=== PATIENT | female | born 1985 | race Caucasian/White ===

== ENCOUNTER 2018-10-24 23:10 | Emergency (ER) | payer MEDICAID ==
[2018-10-24 23:14] VITALS: BMI 28.9
[2018-10-24 23:39] VITALS: BP 106/65; PULSE 90; RESP 18; TEMP 98.2; O2SAT 100
--- NOTE | 2018-10-24 23:53 | ED PDOC ---
Arrival/HPI - General Chief Complaint: Flu-like Symptoms Time Seen by Provider: 10/24/18 23:13 Historian: Patient - History of Present Illness Narrative History of Present Illness (Text): 10/24/18 23:40 33 year old female, with no significant past medical history, presents to the emergency department with flu-like symptoms for 1 day. Patient states she is having congestion, body aches, and a fever. Patient informs she has had sick contact contact at home, as both her children are flu positive. Patient denies any Patient denies any headache, dizziness, chest pain, shortness of breath, abdominal pain, back pain, neck pain, or any other complaint. Time/Duration: 24 hours Symptom Onset: Gradual Symptom Course: Unchanged Activities at Onset: Light Context: Work Past Medical History - Provider Review Nursing Documentation Reviewed: Yes - Tetanus Immunization Tetanus Immunization: Unknown - Pulmonary Hx Respiratory Disorders: Yes Hx Asthma: Yes - Psychiatric Hx Substance Use: No - Surgical History Hx Section: Yes Family/Social History - Physician Review Nursing Documentation Reviewed: Yes Family/Social History: No Known Family HX Smoking Status: Never Smoked Hx Alcohol Use: No Hx Substance Use: No Hx Substance Use Treatment: No Allergies/Home Meds Allergies/Adverse Reactions: Allergies lactase [From [employer]] Allergy (Verified 10/24/18 23:14) RASH shrimp Allergy (Verified 10/24/18 23:14) ITCHING strawberry Allergy (Verified 10/24/18 23:14) RASH Review of Systems - Physician Review All systems were reviewed & negative as marked: Yes - Review of Systems Cardiovascular: absent: Chest Pain Neurological: absent: Headache Physical Exam - Physical Exam Narrative Physical Exam (Text): 10/24/18 23:54 Constitutional: No acute distress. Head: Normocephalic. Atraumatic. Eyes: PERRL. ENT: Moist mucous membranes; congested. Neck: Supple. Cardiovascular: Regular rate. Chest: No tenderness. Respiratory: Clear to auscultation bilaterally. GI: Soft. Nontender. Nondistended. Back: No CVA tenderness. Musculoskeletal: No tenderness or swelling of extremities. Skin: No rash. Neurologic: Alert, no focal deficit. Vital Signs Reviewed: Yes Vital Signs Temp Pulse Resp BP Pulse Ox 10/24/18 23:39 98.2 F 90 18 106/65 100 Temperature: Afebrile Blood Pressure: Normal Pulse: Regular Respiratory Rate: Normal Appearance: Positive for: Well-Appearing, Non-Toxic, Comfortable Pain Distress: None Mental Status: Positive for: Alert and Oriented X 3 Medical Decision Making ED Course and Treatment: 10/24/18 23:55 Impression: 33 year old female presents with flu-like symptoms Plan: -- Tamiflu -- Influenza A/B - Medication Orders Current Medication Orders: Discontinued Medications Oseltamivir Phosphate (Tamiflu Cap) 75 mg PO STAT STA; Protocol Stop: 10/24/18 23:30 - Scribe Statement The provider has reviewed the documentation as recorded by the Scribe Alex Banks Provider Scribe Attestation: All medical record entries made by the Scribe were at my direction and personally dictated by me. I have reviewed the chart and agree that the record accurately reflects my personal performance of the history, physical exam, medical decision making, and the department course for this patient. I have also personally directed, reviewed, and agree with the discharge instructions and disposition. Disposition/Present on Arrival - Present on Arrival Any Indicators Present on Arrival: No History of DVT/PE: No History of Uncontrolled Diabetes: No Urinary Catheter: No History of Decub. Ulcer: No History Surgical Site Infection Following: None - Disposition Have Diagnosis and Disposition been Completed?: Yes Diagnosis: Influenza-like symptoms Disposition: HOME/ ROUTINE Disposition Time: 00:01 Patient Plan: Discharge Patient Problems: Current Active Problems Problem Status Onset Influenza-like symptoms Acute Condition: STABLE Discharge Instructions (ExitCare): Flu, Adult (DC) Prescriptions: Oseltamivir Phosphate [Tamiflu] 1 cap PO BID #9 capsule Forms: [employer] (Qatari), WORK NOTE
== END 2018-10-25 00:27 | disposition home or self-care (01) ==
LOC: ED 23:10
DX: J11.1 Influenza due to unidentified influenza virus with other respiratory manifestations (principal)